=== PATIENT | female | born 1980 | race Caucasian/White ===

== ENCOUNTER 2019-07-31 19:40 | Emergency (ER) | payer SELFPAY ==
[~2019-07-31] VITALS: Ht 167.6 cm; Wt 59.0 kg
[2019-07-31 20:02] VITALS: BP 137/82
== END 2019-07-31 22:14 | disposition home or self-care (01) ==
LOC: ER 19:40
DX: F15.188 Other stimulant abuse with other stimulant-induced disorder (principal); R03.0 Elevated blood-pressure reading, without diagnosis of hypertension; F20.9 Schizophrenia, unspecified; Z59.0 Homelessness
CPT/HCPCS: 99283